=== PATIENT | male | born 1970 | race Caucasian/White ===

== ENCOUNTER 2019-08-04 22:46 | Inpatient (IN) ==
[2019-08-04] MEDS ORDERED: HYDROmorphone 2 MG/1 ML VIAL IV STA (23:09)
[2019-08-04] MEDS ORDERED: PANTOPRAZOLE 40 MG VIAL IV STA (23:09)
[2019-08-04] MEDS ORDERED: SODIUM CHLORIDE 0.9% 500 ML IV STA (23:09)
[2019-08-04] MEDS ORDERED: ONDANSETRON 4 MG/2 ML VIAL IV STA (23:09)
[2019-08-04 23:53] LABS: Basophils % 0.2 % (0.0-0.8); Eosinophils % 0.2 % (0.00-10.9); Hematocrit 40.2 VOL% (42.0-52.0); Hemoglobin 13.9 GM/DL (14.0-18.0); Immature Granulocytes % 0.2 %; Immature Granulocytes Absolute 0.03 #; Lymphocytes # 1.3 10*3/uL (1.4-4.0); Lymphocytes % 10.3 % (21.2-54.2); Mean Corpuscular HGB Conc 34.6 GM/DL (32-36); Mean Corpuscular Volume 84.8 FL (87-102); Mean Platelet Volume 12.2 FL (9.6-12.0); Monocytes % 4.3 % (1.7-12.7); Neutrophils % 84.8 % (38.7-73.9); Platelet Count 193 T/CUMM (130-400); Red Blood Count 4.74 MC/CUMM (3.8-5.5); Red Cell Distribution Width 12.1 % (9.3-17.3); White Blood Count 12.6 T/CUMM (4-12)
[2019-08-05 00:14] LABS: Alanine Aminotransferase 25 U/L (16-61); Albumin 3.6 G/DL (3.4-5.0); Alkaline Phosphatase 135 U/L (45-117); Amylase 51 U/L (25-115); Aspartate Amino Transferase 14 U/L (0-37); Blood Urea Nitrogen 17 MG/DL (7-18); Calcium 8.7 MG/DL (8.5-10.1); Estimated Glom Filtration Rate 90 ML/MIN; Glucose 293 MG/DL (74-106); Osmolality,Calculated 285.8 MOS/KG (273-304); Total Protein 6.8 G/DL (6.4-8.3)
[2019-08-05] MEDS ORDERED: MAGNESIUM SULF RIDER 2 GM in PREMIX 1 EACH IV STA ×2 (00:23→06:28)
[2019-08-05] MEDS ORDERED: PIPERACILLIN/TAZOBACTAM 3,375 MG in SODIUM CHLORIDE 0.9% 100 ML IV STA (00:25)
[2019-08-05 01:06] LABS: Apearance,Urine CLEAR (Clear); Bilirubin,Urine Negative (Negative); Blood, Urine Negative (Negative); Glucose,Urine (UA) >=500 mg/dL (Negative); Ketones,Urine Negative (Negative); Mucus,Urine Occasional /LPF (Occasional); Nitrite,Urine Negative (Negative); Protein,Urine Negative; RBC,Urine 3 /HPF (0-4); Urine Color Yellow (Yellow); Urine Specific Gravity 1.041 (1.001-1.035); WBC,Urine 1 /HPF (0-6)
[2019-08-05] MEDS ORDERED: DEXTROSE 50% 25 GM/50 ML VIAL IV PRN (02:44)
[2019-08-05] MEDS ORDERED: GLUCAGON 1 MG VIAL IM PRN (02:44)
[2019-08-05] MEDS ORDERED: ACETAMINOPHEN 325 MG TABLET PO PRN (02:44)
[2019-08-05] MEDS: HYDROmorphone 2 MG/1 ML VIAL IV PRN ×4 (03:08→21:04)
[2019-08-05] MEDS: SODIUM CHLORIDE 0.9% 1,000 ML IV SCH (03:10)
[2019-08-05] MEDS: PIPERACILLIN/TAZOBACTAM 3,375 MG in SODIUM CHLORIDE 0.9% 100 ML IV SCH ×2 (03:21→12:30)
[2019-08-05 05:41] LABS: Albumin 3.4 G/DL (3.4-5.0); Basophils % 0.2 % (0.0-0.8); Bilirubin,Total 0.6 MG/DL (0.2-1.0); Calcium 8.8 MG/DL (8.5-10.1); Eosinophils % 0.4 % (0.00-10.9); Hematocrit 40.3 VOL% (42.0-52.0); Hemoglobin 13.8 GM/DL (14.0-18.0); Immature Granulocytes % 0.4 %; Immature Granulocytes Absolute 0.03 #; Mean Corpuscular HGB Conc 34.2 GM/DL (32-36); Mean Corpuscular Volume 86.1 FL (87-102); Mean Platelet Volume 12.5 FL (9.6-12.0); Monocytes % 6.7 % (1.7-12.7); Neutrophils % 69.3 % (38.7-73.9); Osmolality,Calculated 287.3 MOS/KG (273-304); Platelet Count 195 T/CUMM (130-400); Red Blood Count 4.68 MC/CUMM (3.8-5.5); Red Cell Distribution Width 12.3 % (9.3-17.3); Total Protein 6.5 G/DL (6.4-8.3); White Blood Count 8.5 T/CUMM (4-12)
[2019-08-05] MEDS: INSULIN REGULAR 100 UNIT/ML SUBCUT SCH ×3 (05:59→19:30)
[2019-08-05] MEDS ORDERED: MECLIZINE 25 MG TABLET PO PRN (08:47)
[2019-08-05] MEDS ORDERED: VANCOMYCIN INJ 2,000 MG in SODIUM CHLORIDE 0.9% 500 ML IV ONE (09:00)
[2019-08-05] MEDS: LISINOPRIL/HCTZ 20-12.5 MG TABLET PO SCH (09:28)
[2019-08-05] MEDS: ONDANSETRON 4 MG/2 ML VIAL IV PRN (09:28)
[2019-08-05] MEDS: clonazePAM 0.5 MG TABLET PO SCH (09:29)
[2019-08-05] MEDS ORDERED: LIDOCAINE 1%/EPI INJ 20 ML VIAL ONE (12:03)
[2019-08-05] MEDS ORDERED: BUPIVACAINE MPF 0.25% 30 ML VIAL ONE (12:04)
[2019-08-05] MEDS ORDERED: TISSUE ADHESIVE 1 EACH APPLICATOR TOP ONE (12:04)
[2019-08-05] MEDS: PANTOPRAZOLE 40 MG TABLET PO SCH (12:30)
[2019-08-05] MEDS ORDERED: MIDAZOLAM 2 MG/2 ML VIAL ONE (13:13)
[2019-08-05] MEDS ORDERED: LIDOCAINE 2% 5 ML VIAL ONE (13:13)
[2019-08-05] MEDS ORDERED: PROPOFOL 200 MG/20 ML VIAL IV ONE (13:13)
[2019-08-05] MEDS ORDERED: fentaNYL 100 MCG/2 ML VIAL ONE ×2 (13:13→13:37)
[2019-08-05] MEDS ORDERED: DESFLURANE 1 UNIT/15 MINUTE INH ONE (13:13)
[2019-08-05] MEDS ORDERED: SUCCINYLCHOLINE 200 MG/10 ML VIAL ONE (13:14)
[2019-08-05] MEDS ORDERED: ROCURONIUM 100 MG/10 ML VIAL IV ONE (13:14)
[2019-08-05] MEDS ORDERED: ONDANSETRON 4 MG/2 ML VIAL ONE (13:14)
[2019-08-05] MEDS ORDERED: SUGAMMADEX 200 MG/2 ML VIAL IV ONE (13:18)
[2019-08-05] MEDS ORDERED: ACETAMINOPHEN 1,000 MG/100 ML VIAL IV ONE (13:20)
[2019-08-05] MEDS ORDERED: ENOXAPARIN 40 MG/0.4 ML SYRINGE SUBCUT SCH (18:00)
[2019-08-06] MEDS: HYDROmorphone 2 MG/1 ML VIAL IV PRN (02:52)
[2019-08-06] MEDS: PIPERACILLIN/TAZOBACTAM 3,375 MG in SODIUM CHLORIDE 0.9% 100 ML IV SCH ×3 (03:02→11:07)
[2019-08-06] MEDS: ONDANSETRON 4 MG/2 ML VIAL IV PRN (03:18)
[2019-08-06] MEDS: INSULIN REGULAR 100 UNIT/ML SUBCUT SCH ×2 (05:09→07:22)
[2019-08-06 05:18] LABS: Basophils % 0.4 % (0.0-0.8); Eosinophils # 0.1 10*3/uL (0.0-0.87); Eosinophils % 1.4 % (0.00-10.9); Hematocrit 38.6 VOL% (42.0-52.0); Hemoglobin 12.5 GM/DL (14.0-18.0); Immature Granulocytes % 0.4 %; Immature Granulocytes Absolute 0.03 #; Lymphocytes # 2.5 10*3/uL (1.4-4.0); Lymphocytes % 31.3 % (21.2-54.2); Mean Corpuscular HGB Conc 32.4 GM/DL (32-36); Mean Corpuscular Volume 89.6 FL (87-102); Mean Platelet Volume 12.8 FL (9.6-12.0); Monocytes % 8.8 % (1.7-12.7); Neutrophils % 57.7 % (38.7-73.9); Platelet Count 174 T/CUMM (130-400); Red Blood Count 4.31 MC/CUMM (3.8-5.5); Red Cell Distribution Width 12.3 % (9.3-17.3); White Blood Count 7.8 T/CUMM (4-12)
[2019-08-06 05:47] LABS: Albumin 3.2 G/DL (3.4-5.0); Bilirubin,Total 0.7 MG/DL (0.2-1.0); Calcium 8.5 MG/DL (8.5-10.1); Total Protein 6.2 G/DL (6.4-8.3)
[2019-08-06] MEDS: SODIUM CHLORIDE 0.9% 1,000 ML IV SCH ×2 (07:20→11:07)
[2019-08-06] MEDS: clonazePAM 0.5 MG TABLET PO SCH (08:24)
[2019-08-06] MEDS: PANTOPRAZOLE 40 MG TABLET PO SCH (08:24)
[2019-08-06] MEDS: LISINOPRIL/HCTZ 20-12.5 MG TABLET PO SCH (09:05)
[2019-08-06 11:41] VITALS: BP 116/67
== END 2019-08-06 12:38 | disposition home or self-care (01) | DRG 418 ==
LOC: N.ED 22:46 → N.EDINP 08-05 00:25 → N.3E 08-05 01:08
PROVIDERS: ADMIT Surgery; ATTEND Surgery
PROC: LAPCHOL (2019-08-05 12:22)